=== PATIENT | female | born 1965 | race Caucasian/White ===

== ENCOUNTER → 2023-09-30 14:55 | Outpatient (REF) | payer BC, SELFPAY | LOC: HWRAD 14:55 | PROVIDERS: ATTENDING PHYSICIAN Internal Medicine Critical Care Medicine; FAMILY PHYSICIAN Nurse Practitioner | DX: R91.1 Solitary pulmonary nodule (principal) | CPT/HCPCS: 71250 ==

== ENCOUNTER → 2023-11-15 16:42 | Outpatient (REF) | payer BC, SELFPAY | LOC: RCS 16:42 | PROVIDERS: ATTENDING PHYSICIAN Internal Medicine Interventional Cardiology; FAMILY PHYSICIAN Internal Medicine | DX: R94.31 Abnormal electrocardiogram [ECG] [EKG] (principal) | CPT/HCPCS: 93306 ==

== ENCOUNTER 2023-11-21 09:30 | Day surgery (SDC) | payer BC, SELFPAY ==
[2023-10-24 09:02] VITALS: BMI 36.6
[2023-10-24 10:52] LABS: INR 0.98; PT 12.8 Sec (11.4-14.6)
[2023-10-24 10:53] LABS: APTT 29.7 Sec (23.4-35.0)
[2023-11-21] VITALS (10 sets, daily range): BP systolic 105–126; BP diastolic 52–76; BMI 36.6
== END 2023-11-21 11:26 | disposition home or self-care (01) ==
LOC: GI 09:30
PROVIDERS: ATTENDING PHYSICIAN Internal Medicine Critical Care Medicine; FAMILY PHYSICIAN Nurse Practitioner; OTHER PHYSICIAN Internal Medicine Cardiovascular Disease
DX: R91.1 Solitary pulmonary nodule (principal); Z87.891 Personal history of nicotine dependence; E04.1 Nontoxic single thyroid nodule; R06.83 Snoring; E66.9 Obesity, unspecified; Z68.36 Body mass index [BMI] 36.0-36.9, adult
CPT/HCPCS: 31629; 31645; 31624; 31627; 31623; 31652; 88172; 88173; 88305; 36415; 71045; 76000; 85610; 85730; 88112; 88177; 88333; 88341; 88342; 93005; 94640; C1887

== ENCOUNTER → 2024-02-20 13:41 | Outpatient (REF) | payer BC, SELFPAY | LOC: HWRAD 13:41 | PROVIDERS: ATTENDING PHYSICIAN Internal Medicine Critical Care Medicine; FAMILY PHYSICIAN Nurse Practitioner | DX: R91.1 Solitary pulmonary nodule (principal) | CPT/HCPCS: 71250 ==

== ENCOUNTER → 2024-03-23 07:19 | Outpatient (REF) | payer BC, SELFPAY | LOC: WDC 07:19 | PROVIDERS: ATTENDING PHYSICIAN Obstetrics & Gynecology; FAMILY PHYSICIAN Nurse Practitioner | DX: Z12.31 Encounter for screening mammogram for malignant neoplasm of breast (principal) | CPT/HCPCS: 77063; 77067 ==

== ENCOUNTER → 2024-07-27 13:09 | Outpatient (REF) | payer BC, SELFPAY | LOC: RAD 13:09 | PROVIDERS: ATTENDING PHYSICIAN Nurse Practitioner | DX: E04.1 Nontoxic single thyroid nodule (principal) | CPT/HCPCS: 76536 ==

== ENCOUNTER → 2024-10-12 10:42 | Outpatient (REF) | payer BC, SELFPAY | LOC: HWRAD 10:42 | PROVIDERS: ATTENDING PHYSICIAN Internal Medicine Critical Care Medicine; FAMILY PHYSICIAN Nurse Practitioner | DX: R91.1 Solitary pulmonary nodule (principal) | CPT/HCPCS: 71250 ==

== ENCOUNTER → 2025-01-14 10:26 | Outpatient (REF) | payer BC, SELFPAY | LOC: WDC 10:26 | PROVIDERS: ATTENDING PHYSICIAN Surgery; FAMILY PHYSICIAN Nurse Practitioner | DX: N64.52 Nipple discharge (principal) | CPT/HCPCS: 76642; 77062; 77066 ==

== ENCOUNTER → 2025-01-29 09:42 | Outpatient (REF) | payer BC, SELFPAY ==
--- NOTE | 2025-01-29 13:28 | OID.BR.INTR ---
ANDRÉSD Breast Navigator - Initial
- -
Date of Contact: 01/29/25
Met with patient. Patient given written information on navigator service available at [facility]. Will follow up as needed per protocol.
== END ==
LOC: WDC 09:42
PROVIDERS: ATTENDING PHYSICIAN Surgery; FAMILY PHYSICIAN Nurse Practitioner
DX: N63.11 Unspecified lump in the right breast, upper outer quadrant (principal)
CPT/HCPCS: 19083; 88305; 88341; 88342; 88360; A4648

== ENCOUNTER → 2025-02-06 10:29 | Outpatient (REF) | payer BC, SELFPAY | LOC: MRI 3T 10:29 | PROVIDERS: ATTENDING PHYSICIAN Surgery; FAMILY PHYSICIAN Nurse Practitioner | DX: C50.911 Malignant neoplasm of unspecified site of right female breast (principal) | CPT/HCPCS: 77049; A9585 ==

== ENCOUNTER → 2025-02-19 14:54 | Outpatient (REF) | payer BC, SELFPAY | LOC: WDC 14:54 | PROVIDERS: ATTENDING PHYSICIAN Surgery; FAMILY PHYSICIAN Nurse Practitioner | DX: R92.8 Other abnormal and inconclusive findings on diagnostic imaging of breast (principal) | CPT/HCPCS: 76642 ==